=== PATIENT | male | born 1960 | race Caucasian/White ===

== ENCOUNTER → 2016-11-12 | Outpatient (CLI) | payer OTHER ==
[~2016-11-12] MED LIST: AMLODIPINE BESYL5 MG PO; ANTIVERT25 MG PO; ATIVAN1 MG PO; DYRENIUM50 MG PO; HYDRODIURIL-DPS50 MG PO; LISINOPRIL-HCT1 EAC1 PO; MAALOX DPS30 ML PO; OMEPRAZOLE20 MG PO; TOPROL XL100 MG PO; TYLENOL325 MG PO; VIBRAMYCIN-DPS100 M1 PO; VITAMIN C500 MG PO
== END | disposition home or self-care (01) ==
LOC: RAD.S 08:41
DX: L03.032 Cellulitis of left toe (principal)